=== PATIENT | female | born 2005 | race Caucasian/White ===

== ENCOUNTER 2024-12-24 13:14 | Emergency (ER) | payer OTHER, SELFPAY ==
--- NOTE | ~2024-12-24 | XR_ITS ---
EXAMINATION: XR chest 2V DATE: 12/24/2024 13:36 INDICATION: Chest pain TECHNIQUE: PA and lateral views of the chest were obtained. COMPARISON: None FINDINGS: The lungs are clear with no focal airspace opacities, pulmonary edema, pleural effusion or pneumothorax. The cardiomediastinal silhouette is normal. Visualized bones and soft tissues are unremarkable. IMPRESSION: 1. Normal chest radiograph. Reviewed, dictated and finalized at location A. IMPRESSION: 1. Normal chest radiograph.
[2024-12-24 13:20] VITALS: BP 139/81; PULSE 71; RESP 16; TEMP 36.3; O2SAT 100
--- NOTE | 2024-12-24 13:20 | ED.CHESTPAIN ---
HPI - Chest Pain General Chief Complaint: Chest Pain Stated Complaint: Chest Pain Source: patient and RN notes reviewed Mode of arrival: ambulatory Limitations: no limitations History of Present Illness HPI narrative: Patient is a 19-year-old female who presents to the [facility] with complaints of chest pain that has been ongoing since last Tuesday. She states that initially she noted the chest pain was present more so after eating. She states that over the past week, the pain has become more severe. It remains intermittent. However it does not correlate with the eating as it did when it 1st started. She denies any associated shortness of breath, cough, recent illness. Denies family history of early cardiac disease. Nothing appears to make this pain better or worse. Patient states that she saw her primary care physician on Tuesday who believed that she was experiencing pain due to her losing her voice at a concert over the weekend. She is concerned as it has not improved. Review of Systems Review of Systems: CONSTITUTIONAL: Denies fever, chills, or sweats. EYES: Denies visual changes, redness, or discharge. ENT: Denies otalgia and sore throat CARDIOVASCULAR: Reports chest pain. RESPIRATORY: Denies cough or dyspnea. GASTROINTESTINAL: Denies abdominal pain, nausea, vomiting, or diarrhea. GENITOURINARY: Denies dysuria or hematuria. SKIN: Denies rash or itching. MUSCULOSKELETAL: Denies back pain, joint pain, or myalgia. NEUROLOGIC: Denies headache, numbness, or weakness. Pertinent positives per HPI. PMFSH Comments At the time of my signature, I reviewed and agree with the nursing past medical, surgical, social, and family history. There is no relevant family history pertinent to the patient complaint. Exam Narrative: GENERAL: This is a well-nourished, well-developed patient, in no apparent distress. HEAD: normocephalic, atraumatic. EYES: PERRL. Sclera clear/white. Vision is grossly intact. EARS: External ears normal, auditory canals clear and without drainage, TMs normal without perforation. Hearing grossly intact. NOSE: External nose normal with no obvious nasal discharge, nares without redness, no rhinorrhea. THROAT: Mucous membranes moist, posterior pharynx clear. NECK: Neck supple, non-tender without lymphadenopathy, masses or thyromegaly. CARDIOVASCULAR: Regular rate and rhythm without murmurs, gallops, or rubs. RESPIRATORY: Clear to auscultation. Breath sounds equal bilaterally. No wheezes, rales, or rhonchi. GASTROINTESTINAL: Abdomen soft, non-tender, nondistended. Bowel sounds are active. No hepato-splenomegaly, or palpable masses. No guarding. SKIN: warm, intact with no suspicious lesions or rash, good texture and turgor. NEURO: awake, alert, and oriented to person, place and time. There were no obvious focal neurologic abnormalities. EXTREMITIES: No clubbing, cyanosis, or edema. No joint tenderness, effusion, or edema noted. BACK: Nontender without deformity or crepitance. No flank tenderness. Course Course Level of Care: Express Care Visit Vital Signs Vital signs: Vital Signs Temperature 97.3 F L 12/24/24 13:20 Pulse Rate 71 12/24/24 13:20 Respiratory Rate 16 12/24/24 13:20 Blood Pressure 139/81 12/24/24 13:20 Pulse Oximetry 100 12/24/24 13:20 Oxygen Delivery Room Air 12/24/24 13:20 Temperature 97.3 F L 12/24/24 13:20 Pulse Rate 71 12/24/24 13:20 Respiratory Rate 16 12/24/24 13:20 Blood Pressure 139/81 12/24/24 13:20 Pulse Oximetry 100 12/24/24 13:20 Oxygen Delivery Room Air 12/24/24 13:20 Reviewed MDM - Chest Pain MDM Narrative Medical decision making narrative: Use the RICE method at home. May take ibuprofen and/or Tylenol if needed. If symptoms persist in 1 week after conservative treatment, follow-up with specialist. Differential Diagnosis Differential diagnosis: Likely atypical chest pain, costochondritis and chest pain Imaging Data Attestation: I personally reviewed and interpreted this imaging study as follows: Radiologist's impression: [facility] [place] [address] [facility] [place] [address] XRay Report Signed Patient: Erica Tucker : 2005 MR#: [id number] Age: 19 Acct:[id number] Loc: [id number] ADM Date: 12/24/24Attending Dr: Ordering Physician: Rebekah Robles APRN Date of Service: 12/24/24 Procedure(s): XR chest 2V Accession Number(s): [id number] cc: Margaret Rebekahel Rodriguez APRN; HEAT SEALING MACHINE OPERATOR PHYSICIAN~ EXAMINATION: XR chest 2V DATE: 12/24/2024 13:36 INDICATION: Chest pain TECHNIQUE: PA and lateral views of the chest were obtained. COMPARISON: None FINDINGS: The lungs are clear with no focal airspace opacities, pulmonary edema, pleural effusion or pneumothorax. The cardiomediastinal silhouette is normal. Visualized bones and soft tissues are unremarkable. IMPRESSION: 1. Normal chest radiograph. Reviewed, dictated and finalized at location A. Please be advised this is a medical document. It is intended for [id number] communication. It is written in medical language and may contain unfamiliar abbreviations or verbiage. Medical documents are intended to carry relevant information, facts as evident, and the clinical opinion of the practitioner at the time of the encounter. This report may have been done utilizing a voice recognition system. Attempts have been made to correct errors. However, there may be uncorrected grammatical, spelling, and recognition errors present. The file time of this note does not necessarily represent the time of service. Dictated By: Mario Fuentes MD 12/24/24 1337 Signed By: <Electronically signed by Mario Fuentes MD in [place]> 12/24/24 1338 ECG Data EKG #1: Attestation: I personally reviewed and interpreted this ECG as follows: ECG completion date: 12/24/24 ECG completion time: 13:43 Interpretation: Sinus rhythm with a rate of 79 beats per minute. Normal axis. Normal intervals. No acute ST elevation. EKG Interpretation: sinus rhythm Critical Care Time Critical Care Time Critical Care Time: No Discharge Plan Discharge Clinical Impression: Acute chest wall pain Patient Disposition: Home Condition: Stable Instructions: P.R.I.C.E. Treatment (ED), Chest Wall Pain (ED) Additional Instructions: Use the RICE method at home. May take ibuprofen and/or Tylenol if needed. If symptoms persist in 1 week after conservative treatment, follow-up with specialist. Patient Language: Pashto Follow-up/Referrals: PHYSICIAN,HEAT SEALING MACHINE OPERATOR [Primary Care Provider, Internal Medicine] Stand Alone Forms: Work/School Release IP Time of Disposition: 13:49
--- NOTE | 2024-12-24 13:24 | ECG_ITS ---
Test Date: 2024-12-24 13:43:36 Measurements Intervals [place] Rate: 79 P: 48 AR: 140 QRS: 53 QRSD: 87 T: 23 QT: 384 QTc: 443 Interpretive Statements SINUS RHYTHM No previous ECG available for comparison Electronically Signed On 12-24-2024 15:06:37 CDT by Sukh Moreno M.D.
== END 2024-12-24 13:53 | disposition home or self-care (01) ==
PROVIDERS: Emergency Provider Nurse Practitioner
DX: R07.89 Other chest pain (principal)
CPT/HCPCS: 71046; 93005; 99213; G0463